=== PATIENT | female | born 1965 | race African-American/Black ===

== ENCOUNTER 2016-11-12 18:37 | Emergency (ER) | payer MEDICAID ==
[~2016-11-12] VITALS: Ht 167.6 cm; Wt 78.4 kg
[~2016-11-12 18:37] MED LIST: LEXA20TA PO; MOOD STABILIZER; TRAM50 PO
[2016-11-12 18:49] VITALS: BP 140/86; PULSE 94; RESP 16; TEMP 98.7; O2SAT 100
--- NOTE | 2016-11-12 19:49 | RADHPO ---
EXAM DATE/TIME: 11/12/2016 19:31 [place] COMPARISON: No previous studies available for comparison. INDICATIONS : Right foot fifth digit pain. Patient states she injuerd in while walking. MEDICAL HISTORY : None. SURGICAL HISTORY : None. ENCOUNTER: Initial ACUITY: 4 - 6 days PAIN SCORE: 7/10 LOCATION: Right foot, fifth digit. FINDINGS: Examination of the fifth digit of the right foot demonstrates fracture through the proximal metadiaph ysis of the proximal phalanx of the fifth digit with approximately one cortical thickness medial disp lacement and 45 of dorsal angulation of the distal fragment CONCLUSION: Fracture of the proximal phalanx of the fifth ray as above. Tien Saucedo MD on November 12, 2016 at 19:46 Board Certified Radiologist. This report was verified electronically.
[2016-11-12] MEDS ORDERED: IBUP800T23 PO (20:27)
--- NOTE | 2016-11-12 20:27 | PD ---
HPI Chief Complaint: Injury Time Seen by Provider: 20:23 Travel History International Travel<30 days: No Contact w/Intl Traveler<30days: No Traveled to known affect area: No History of Present Illness HPI Patient is a 51-year-old female presenting to emergency for evaluation of left fifth toe pain. Patient states she kicked a door last week. Since that time she's had pain and swelling in her left fifth toe. She states the swelling is worse after she been on her feet. She's been unable to completely bear weight due to pain in that toe. She denies any other injury trauma. Patient has been taking tramadol for the pain which she normally takes for her fibromyalgia. She has not taken any ibuprofen or acetaminophen. She reports the pain as an 8 out of 10. PFSH Past Medical History Bipolar Disorder: Yes Medical other: Yes (fibromyalgia) Past Surgical History Mastectomy: Yes (L SIDE) Social History Alcohol Use: No Tobacco Use: No Substance Use: No Allergies-Medications (Allergen,Severity, Reaction): Coded Allergies: No Known Allergies (Unverified , 11/12/16) Reported Meds & Prescriptions Reported Meds & Active Scripts Active Ultram (Tramadol HCl) 50 Mg Tab 50 Mg PO Q6 PRN Reported [Mood Stabilizer] Lexapro (Escitalopram Oxalate) 20 Mg Tab 40 Mg PO DAILY Review of Systems Except as stated in HPI: all other systems reviewed are Neg Musculoskeletal: Positive: Myalgias, Arthralgias, Edema, Pain Skin: Positive Change in Pigmentation Physical Exam Narrative GENERAL: Well-nourished, well-developed patient. SKIN: Focused skin assessment warm/dry. HEAD: Normocephalic. EYES: No scleral icterus. No injection or drainage. NECK: Supple, trachea midline. No JVD or lymphadenopathy. CARDIOVASCULAR: Regular rate and rhythm without murmurs, gallops, or rubs. RESPIRATORY: Breath sounds equal bilaterally. No accessory muscle use. GASTROINTESTINAL: Abdomen soft, non-tender, nondistended. MUSCULOSKELETAL: No cyanosis, edema noted to right fifth toe, tender to palpation. Brisk less than 3 second capillary refill. Positive pedal pulse. No obvious deformity noted. BACK: Nontender without obvious deformity. No CVA tenderness. Data Data Last Documented VS Vital Signs Date Time Temp Pulse Resp B/P Pulse Ox O2 Delivery O2 Flow Rate FiO2 11/12/16 18:49 98.7 94 16 140/86 100 Orders Toe (Min 2vws) (11/12/16 ) MDM Medical Decision Making Medical Screen Exam Complete: Yes Emergency Medical Condition: Yes Interpretation(s) Vital Signs Date Time Temp Pulse Resp B/P Pulse Ox O2 Delivery O2 Flow Rate FiO2 11/12/16 18:49 98.7 94 16 140/86 100 Differential Diagnosis Fracture versus sprain versus strain versus dislocation versus other Narrative Course Patient is a 51-year-old female presenting to the emergency room for evaluation of right fifth toe pain. Imaging revealed a right fifth toe fracture. She is neurovascularly intact. Patient will be placed in a postop shoe and given crutches for comfort. Patient encouraged to rest, ice, elevate extremity. She is encouraged to ibuprofen as needed and as directed for pain. Patient is encouraged return to emergency department for any new or worsening symptoms. She should follow-up with her primary doctor as well. Patient verbalized understanding of these instructions. Patient stable for discharge. Diagnosis Primary Impression: Toe fracture, right Qualified Code: S92.504A - Closed nondisplaced fracture of phalanx of lesser toe of right foot, unspecified phalanx, initial encounter Referrals: Primary Care Physician Patient Instructions: General Instructions, Toe Fracture (ED) Additional Instructions: Follow-up with her primary doctor Rest, ice, elevate extremity Use crutches for comfort Increase weightbearing as tolerated Return to emergency department for any new or worsening symptoms Med/Other Pt SpecificInfo: Prescription(s) given Scripts Ibuprofen 800 Mg Lho728 Mg PO Q6HR PRN (PAIN) #40 TAB Ref 0 Prov:Rosangela Daniel 11/12/16 Disposition: 01 DISCHARGE HOME Condition: Stable Rosangela Daniel Nov 12, 2016 20:27
== END 2016-11-12 20:44 | disposition home or self-care (01) ==
LOC: PHED 18:37 → PHEFT 20:44
DX: S92.511A Displaced fracture of proximal phalanx of right lesser toe(s), initial encounter for closed fracture (principal); M79.7 Fibromyalgia; W22.8XXA Striking against or struck by other objects, initial encounter; Y93.9 Activity, unspecified; Y92.9 Unspecified place or not applicable; Y99.8 Other external cause status
CPT/HCPCS: 73660; 99283; E0113; L3260